=== PATIENT | female | born 1940 | race Caucasian/White ===

== ENCOUNTER 2018-12-12 09:56 | Emergency (ER) | payer MEDICARE ==
[2018-12-12 10:11] VITALS: BP 155/76
--- NOTE | 2018-12-12 11:02 | UC ---
Respiratory Complaint HPI - HPI Summary HPI Summary: 78 yo female presents requesting a work note. She tells me that she has come down with cold symptoms - runny nose, dry cough, sinus congestion. She is taking OTC cold medicine with mild relief. She works at [employer] and does not want to go to work sick. She also mentions that about 2 weeks ago she fell in her barn at home and landed on her RIGHT knee. Since that time has had pain in her RIGHT knee, but has been improving. She is asking to return to light duty after this week. She is ambulatory without assistance or limp. Denies fever, chills, sore throat, productive cough, SOB, chest pain, numbness, or tingling. - History of Current Complaint Chief Complaint: UCGeneralIllness Stated Complaint: COUGH Time Seen by Provider: 12/12/18 11:02 Hx Obtained From: Patient Onset/Duration: Gradual Onset Severity Initially: Moderate Severity Currently: Mild Pain Intensity: 3 Pain Scale Used: 0-10 Numeric - Allergies/Home Medications Allergies/Adverse Reactions: Allergies Allergy/AdvReac Type Severity Reaction Status Date / Time shellfish derived Allergy Rash Verified 12/12/18 10:12 Home Medications: Home Medications NK [No Home Medications Reported] 12/12/18 [History Confirmed 12/12/18] PMH/Surg Hx/FS Hx/Imm Hx - Additional Past Medical History Additional PMH: None - Surgical History Surgical History: Yes Surgery Procedure, Year, and Place: RETINA REATTACHED 2 YRS AGO AT [facility], [facility] - OP REPORT STATES NO METAL;. LAP EMA;. CATARACT REPAIR AT [facility]; - Family History Known Family History: Positive: Unknown - Social History Occupation: Employed Full-time Lives: With Family Alcohol Use: Rare Substance Use Type: None Smoking Status (MU): Never Smoked Tobacco Review of Systems All Other Systems Reviewed And Are Negative: Yes Constitutional: Positive: Negative Skin: Positive: Negative Eyes: Positive: Negative ENT: Positive: Nasal Discharge, Sinus Congestion Respiratory: Positive: Cough Cardiovascular: Positive: Negative Neurovascular: Positive: Negative Musculoskeletal: Positive: Other: - knee pain Neurological: Positive: Negative Psychological: Positive: Negative Physical Exam - Summary Physical Exam Summary: GENERAL: NAD. WDWN. No pain distress. SKIN: No rashes, sores, lesions, or open wounds. HEENT: Head: AT/NC Eyes: EOM intact. Conjunctiva clear without inflammation or discharge. Ears: Hearing grossly normal. TMs intact, no bulging, erythema, or edema. Nose: Nasal mucosa pink and moist. NTTP maxillary and frontal sinus. Throat: Posterior oropharynx without exudates, erythema, or tonsillar enlargement. Uvula midline. NECK: Supple. Nontender. No lymphadenopathy. CHEST: CTAB. No r/r/w. No accessory muscle use. Breathing comfortably and in no distress. CV: RRR. Without m/r/g. Pulses intact. Cap refill <2seconds MSK: Mild TTP over inferior patella. FROM without pain. Strength 5/5. No edema or obvious bony deformities. No patella apprehension. Negative Yumiko, A/P drawer, Frandy, and varus/valgus stress. NEURO: Alert. PSYCH: Age appropriate behavior. Triage Information Reviewed: Yes Vital Signs: Initial Vital Signs Temp 98.8 F 12/12/18 10:08 Pulse 81 12/12/18 10:08 Resp 18 12/12/18 10:08 BP 155/76 12/12/18 10:08 Pulse Ox 100 12/12/18 10:08 Vital Signs Reviewed: Yes Diagnostic Evaluation - Laboratory O2 Sat by Pulse Oximetry: 100 Respiratory Course/Dx - Course Course Of Treatment: Suspect viral illness and contusion of left knee - pt says is improving. Declined XR today. Will write her for off this week and return to light duty starting next week. - Differential Dx/Diagnosis Provider Diagnosis: Viral sinusitis, Knee pain Discharge - Sign-Out/Discharge Documenting (check all that apply): Patient Departure All imaging exams completed and their final reports reviewed: No Studies - Discharge Plan Condition: Stable Disposition: HOME Patient Education Materials: Contusion in Adults (ED), Viral Syndrome (ED) Forms: *Work Release Referrals: Gabriela Keith DC [Primary Care Provider] - 2 Weeks Additional Instructions: If you develop a fever, shortness of breath, chest pain, new or worsening symptoms - please call your PCP or go to the ED. Your blood pressure was elevated at todays visit. Please see your primary provider within 4 weeks for recheck and re-evaluation. - Billing Disposition and Condition Condition: STABLE Disposition: Home
== END 2018-12-12 11:26 | disposition home or self-care (01) ==
LOC: UCEAST 09:56
DX: J32.8 Other chronic sinusitis (principal); M25.561 Pain in right knee
CPT/HCPCS: 99212; G0463

== ENCOUNTER 2019-06-25 11:26 | Emergency (ER) | payer OTHER ==
--- NOTE | 2019-06-25 12:26 | UC ---
General HPI - HPI Summary HPI Summary: WHILE AT WORK 3 DAYS AGO, PT FELT VERY WEAK AND DIZZY. SHE WAS UNABLE TO STAND DUE TO HER WEAKNESS AND WAS ASSISTED TO HER FEET BY OTHER INDIVIDUALS. SHE DROVE HERSELF HOME. SHE REPORTS "I'VE BEEN IN BED FOR 3 DAYS" TODAY, SHE TRIED TO GET OOB AND FELL THEN STAYED ON THE FLOOR FOR 1 1/2 HOURS BEFORE GETTING BACK IN BED. SHE GOT UP AGAIN AND FELL A SECOND TIME THEN GOT BACK IN BED AGAIN. SHE DENIES HEAD, NECK AND BACK INJURY FROM THE FALLS. SHE GOT ABRASIONS TO BOTH KNEES. PT NOTES NO APPETITE BUT DRANK A PROTEIN DRINK YESTERDAY. SHE HASN'T SEEN A PCP IN 3 YEARS AND DENIES HX OF ILLNESS. SHE DENIES ANY FOCAL WEAKNESS, LUU, CHANGES IN SPEECH AND VISUAL DISTURBANCES. - History of Current Complaint Chief Complaint: UCGeneralIllness Stated Complaint: DIZZY,WEAK Time Seen by Provider: 06/25/19 12:15 Hx Obtained From: Patient Pain Intensity: 0 Associated Signs & Symptoms: Positive: Dizziness, Weakness. Negative: Abdominal Pain, Confusion, Cough, Chest Pain, Diarrhea, Dysuria, Fever, Headache , Nausea, Palpitations, Syncope, SOB, Vomiting - Allergy/Home Medications Allergies/Adverse Reactions: Allergies Allergy/AdvReac Type Severity Reaction Status Date / Time hornet venom Allergy Hives Verified 06/25/19 11:39 PMH/Surg Hx/FS Hx/Imm Hx Previously Healthy: Yes - Surgical History Surgical History: Yes Surgery Procedure, Year, and Place: Cholecystectomy, ~2000 - Family History Known Family History: Positive: Non-Contributory - Social History Occupation: Employed Full-time Alcohol Use: Rare Substance Use Type: None Smoking Status (MU): Never Smoked Tobacco Review of Systems All Other Systems Reviewed And Are Negative: Yes Constitutional: Positive: Fatigue. Negative: Fever, Chills Eyes: Negative: Blurred Vision, Diplopia ENT: Negative: Sore Throat, Sinus Congestion Respiratory: Negative: Shortness Of Breath, Cough Cardiovascular: Negative: Palpitations, Chest Pain Gastrointestinal: Negative: Abdominal Pain, Vomiting, Diarrhea, Nausea Genitourinary: Negative: Dysuria Motor: Positive: Weakness Neurovascular: Negative: Decreased Sensation Musculoskeletal: Negative: Decreased ROM Neurological: Positive: Weakness. Negative: Headache, Paresthesia, Numbness Physical Exam Triage Information Reviewed: Yes Appearance: Well-Appearing Vital Signs: Initial Vital Signs Temp 98.8 F 06/25/19 11:34 Pulse 92 06/25/19 11:34 Resp 28 06/25/19 11:34 BP 148/70 06/25/19 11:34 Pulse Ox 97 06/25/19 11:34 Vital Signs Reviewed: Yes Eyes: Positive: Conjunctiva Clear ENT: Positive: Pharynx normal, TMs normal. Negative: Nasal congestion Neck: Positive: Supple, Nontender, No Lymphadenopathy, Other: - c-spine non tender. Respiratory: Positive: Chest non-tender, Normal breath sounds, Other: - occasional end inspiratory wheeze RUL with deep breaths only. lungs otherwise clear. Cardiovascular: Positive: RRR, No Murmur, Pulses Normal, Other: - No carotid bruits. Abdomen Description: Positive: Nontender, No Organomegaly, Soft Bowel Sounds: Positive: Present Musculoskeletal: Positive: ROM Intact, Other: - Head, neck, back, extremites without instability or tenderness. Abrasion over each knee. Neurological: Positive: Other: - A&Ox3. CN 2-12 grossly intact. Observes ambulating with nurse from the BR and very slow but steady gait. Psychological: Positive: Normal Response To Family, Age Appropriate Behavior Skin Exam: Normal, Other Diagnostics - Laboratory Lab Results: u/a=pt unable to give sample. VZ=730. symptomatic with her orthostatics. - EKG Cardiac Rate: NL Cardiac Rhythm: Sinus: Normal Ectopy: None ST Segment: Normal Course/Dx - Course Course Of Treatment: Pr advised of need for ER evaluation. EMS strongly advised; however, pt is refusing. Since she is A&Ox3 I must respect her refusal as she is able to make decisions. Her friend will drive her and get a WC at the ER to take pt in to the ER. [facility] ER called, report of pt's weakness, falls, anorexia, hyperglycemia and dizziness given to Deanna Hatfield NP. I advised pt refused ems and frined is to ask for a WC when they arrive. - Differential Dx - Multi-Symptom Differential Diagnoses: Other - non toxic. + orthostatics and BS 160's thus new onset DM and dehydration in differential; however, other causes of weakness still possible making her differential broad. EKG, no lethal arrythmia. neuro exam unremarkable here. - Diagnoses Provider Diagnosis: Weakness, Anorexia, Fall, Hyperglycemia Discharge - Sign-Out/Discharge Documenting (check all that apply): Patient Departure All imaging exams completed and their final reports reviewed: No Studies - Discharge Plan Condition: Stable Disposition: TRANS HIGHER LVL OF CARE FAC Referrals: Jonathan Neri MD [Medical Doctor] - Additional Instructions: LEAVE HERE AND GO DIRECTLY TO THE [facility] ER DISCUSSED. - Billing Disposition and Condition Condition: STABLE Disposition: Trans Higher Lvl of Care Fac - Attestation Statements Provider Attestation: This patient was not seen by me. I was available for consult. JLD Addendum entered and electronically signed by Lizzie Joseph PA 06/25/19 12:58 :
[2019-06-25 12:40] VITALS: BP 134/52
== END 2019-06-25 12:20 | disposition short-term general hospital (02) ==
LOC: UCCORT 11:26 → MERGE 11:26 → UCCORT 12:20
DX: R53.1 Weakness (principal); R63.0 Anorexia; E16.2 Hypoglycemia, unspecified; W19.XXXA Unspecified fall, initial encounter; Z91.81 History of falling; Y93.89 Activity, other specified; Y92.003 Bedroom of unspecified non-institutional (private) residence as the place of occurrence of the external cause
CPT/HCPCS: 93005; 99202; G0463